=== PATIENT | male | born 1980 | race Caucasian/White ===

== ENCOUNTER 2016-09-07 12:33 | Emergency (ER) | payer OTHER ==
[~2016-09-07] VITALS: Ht 170.2 cm; Wt 106.6 kg
[2016-09-07 12:36] VITALS: BP 136/79
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
[2016-09-07] MEDS ORDERED: CYCLOBENZAPRINE10 M1 PO (12:44)
== END 2016-09-07 12:54 ==
LOC: ERH 12:33
DX: S39.012A Strain of muscle, fascia and tendon of lower back, initial encounter (principal); S29.012A Strain of muscle and tendon of back wall of thorax, initial encounter; V89.2XXA Person injured in unspecified motor-vehicle accident, traffic, initial encounter
CPT/HCPCS: 96372; J1885